=== PATIENT | female | born 1950 | race Caucasian/White ===

== ENCOUNTER 2023-12-15 16:31 | Emergency (ER) | payer OTHER, SELFPAY ==
[2023-12-15] VITALS (19 sets, daily range): BP systolic 92–183; BP diastolic 55–94; PULSE 56–78; RESP 10–25; TEMP 37.6; O2SAT 93–98; BMI 22.4
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
[2023-12-15] MEDS: HYDROMORPHONE 1 MG INJ IM (18:08)
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
[2023-12-15] MEDS: ONDANSETRON 4 MG ODT SL (18:48)
[2023-12-15] MEDS: SODIUM CHLORIDE 0.9% 1,000 ML 1000 ML IV (19:28)
[2023-12-15] MEDS: ONDANSETRON 4 MG/2 ML INJ IV ×2 (19:28→20:18)
[2023-12-15] MEDS: METOCLOPRAMIDE 10 MG/2 ML INJ IV (21:04)
== END 2023-12-15 22:50 | disposition home or self-care (01) ==
PROVIDERS: Emergency Provider Emergency Medicine
DX: S42.031A Displaced fracture of lateral end of right clavicle, initial encounter for closed fracture (principal); S22.41XA Multiple fractures of ribs, right side, initial encounter for closed fracture; S09.90XA Unspecified injury of head, initial encounter; W17.89XA Other fall from one level to another, initial encounter
CPT/HCPCS: 70450; 71101; 73030; 96361; 96372; 96374; 96375; 96376; 99284; J1170; J2405; J2765